=== PATIENT | male | born 1965 | race Caucasian/White ===

== ENCOUNTER 2024-08-07 08:33 | Outpatient (CLI) | payer MEDICARE | END 2024-08-07 08:34 | disposition home or self-care (01) | LOC: CSHSLEEP 08:33 | PROVIDERS: ATTEND Internal Medicine | DX: G47.33 Obstructive sleep apnea (adult) (pediatric) (principal); E66.9 Obesity, unspecified; Z68.41 Body mass index [BMI] 40.0-44.9, adult; G47.61 Periodic limb movement disorder; R09.02 Hypoxemia; R00.0 Tachycardia, unspecified | CPT/HCPCS: 95811 ==

== ENCOUNTER 2024-08-25 12:28 | Outpatient (CLI) | payer MEDICARE | END 2024-08-25 12:29 | disposition home or self-care (01) | LOC: CSHCT 12:28 | PROVIDERS: ATTEND Otolaryngology Plastic Surgery within the Head & Neck | DX: J39.8 Other specified diseases of upper respiratory tract (principal) | CPT/HCPCS: 70491 ==